=== PATIENT | male | born 1990 | race African-American/Black ===

== ENCOUNTER → 2017-04-02 20:25 | Emergency (ER) | payer OTHER ==
[~2017-04-02 20:25] MED LIST: Acetaminophen TAB* 325 MG PO ONE
[2017-04-02 21:54] LABS: Urine Bilirubin Negative (Negative); Urine Glucose Negative (Negative); Urine Nitrite Negative (Negative)
[2017-04-02 21:55] LABS: Hematocrit 44 % (42-52); Mean Corpuscular HGB Conc 34 g/dl (31-36); Mean Corpuscular Hemoglobin 30 pg (27-31); Mean Corpuscular Volume 89 fL (80-94); Mean Platelet Volume 9 um3 (7.4-10.4); Red Blood Count 4.94 10^6/ul (4.0-5.4); Red Cell Distribution Width 13 % (10.5-15); White Blood Count 6.7 10^3/ul (3.5-10.8)
[2017-04-02 21:57] LABS: Add Diff/Slide Review? Slide Review Added; Comments Flag Yes
[2017-04-02 22:10] LABS: ALT 31 U/L (7-52); AST 34 U/L (13-39); Albumin 4.8 g/dL (3.2-5.2); Alkaline Phosphatase 93 U/L (34-104); Anion Gap 8 mmol/L (2-11); BUN/Creatinine Ratio 6.9 (8-20); Blood Urea Nitrogen 9 mg/dL (6-24); CO2 Carbon Dioxide 28 mmol/L (22-32); Calcium 9.8 mg/dL (8.6-10.3); Chloride 102 mmol/L (101-111); EGFR African American 85.7 (>60); EGFR Non-African American 66.7 (>60); Globulin 3.4 g/dL (2-4); Glucose 107 mg/dL (70-100); Potassium 4.3 mmol/L (3.5-5.0); Sodium 138 mmol/L (133-145); Total Protein 8.2 g/dL (6.4-8.9)
[2017-04-02 22:15] LABS: Benzodiazepine Urine Screen None Detected (None Detect)
[2017-04-02 22:24] LABS: Acetaminophen < 15 mcg/mL; Alcohol 216 mg/dL (<10); Salicylate < 2.50 mg/dL (<30)
[2017-04-02 22:40] LABS: TSH (Thyroid Stimulating Horm) 2.16 mcIU/mL (0.34-5.60)
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
[2017-04-03 04:36] VITALS: BP 139/83
--- NOTE | 2017-04-04 02:45 | ED ---
Didier Perez Benjamin, scribed for Annette Cam MD on 04/03/17 at 0419 . Progress - Progress Note Progress Note: Signout pt from Dr. Balderrama at the end of his shift. Pt was seen for ETOH abuse. Pt pending disposition. Re-Evaluation - Re-Evaluation First Eval Re-Evaluation Time: 04:19 Change: Improved - Pt is feeling better, states that he is ready to go home. Pt is clinically sober. He has clear speech, steady gait, and no signs of alcohol withdrawal at time of discharge. Course/Dx - Course Course Of Treatment: disposition: home. condition: stable - Diagnoses Provider Diagnoses: Acute alcohol intoxication The documentation as recorded by the Didier ruiz Benjamin accurately reflects the service I personally performed and the decisions made by , Annette Cam MD.
== END | disposition home or self-care (01) ==
LOC: ED 20:25
DX: F10.129 Alcohol abuse with intoxication, unspecified (principal); Y90.7 Blood alcohol level of 200-239 mg/100 ml; F17.210 Nicotine dependence, cigarettes, uncomplicated
CPT/HCPCS: 36415; 80053; 80307; 80320; 80329; 81003; 84443; 85025; 99285; A9270-GY; G0480

== ENCOUNTER 2017-06-11 23:17 | Emergency (ER) | payer OTHER ==
[2017-06-11] MEDS: LORazepam INJ* 2 MG/ML 1 ML VIAL IV PUSH ONE ×2 (23:50→23:53)
[2017-06-12] MEDS ORDERED: Thiamine TAB* 100 MG TAB PO ONE (00:18)
[2017-06-12] MEDS ORDERED: LORazepam INJ* 2 MG/ML 1 ML VIAL ONE (00:37)
[2017-06-12] MEDS ORDERED: Haloperidol INJ IV/IM* 5 MG/ML AMP ONE (00:37)
[2017-06-12] MEDS ORDERED: diPHENhydraMINE IV* 50 MG/ML 1 ml VIAL (BENADRYL) ONE (00:37)
[2017-06-12 01:56] LABS: ABS Basophils 0 10^3/ul (0-0.2); ABS Eosinophils 0.1 10^3/ul (0-0.6); ABS Lymphocytes 1.6 10^3/ul (1.0-4.8); ABS Monocytes 0.2 10^3/ul (0-0.8); ABS Neutrophils 3.5 10^3/ul (1.5-7.7); ABS Nucleated RBC 0 10^3/ul; Eosinophil % 1.2 % (0-6); Hematocrit 35 % (42-52); Hemoglobin 12.5 g/dl (14.0-18.0); Lymphocyte % 29.1 % (25-47); Mean Corpuscular HGB Conc 35 g/dl (31-36); Mean Corpuscular Hemoglobin 30 pg (27-31); Mean Corpuscular Volume 85 fL (80-94); Mean Platelet Volume 10 um3 (7.4-10.4); Nucleated Red Blood Cells % 0; Platelet Count 194 10^3/ul (150-450); Red Blood Count 4.16 10^6/ul (4.0-5.4); Red Cell Distribution Width 13 % (10.5-15); White Blood Count 5.4 10^3/ul (3.5-10.8)
[2017-06-12 02:11] LABS: EGFR Non-African American 83.5 (>60)
[2017-06-12] MEDS ORDERED: NS 0.9% 1000 ML* 1,000 ML IV SCH (02:30)
[2017-06-12 11:35] VITALS: BP 00/0
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
== END 2017-06-12 11:34 ==
LOC: ED 23:17
DX: F10.129 Alcohol abuse with intoxication, unspecified (principal); F17.210 Nicotine dependence, cigarettes, uncomplicated
CPT/HCPCS: 36415; 80053; 80307; 80320; 83735; 84443; 85025; 96374; 99285; G0480; J1200; J1630; J2060

== ENCOUNTER 2017-06-14 | Emergency (ER) | payer OTHER ==
[2017-06-14] MEDS ORDERED: Thiamine TAB* 100 MG TAB PO ONE (06:45)
[2017-06-14] MEDS ORDERED: Acetaminophen TAB* 325 MG PO ONE (08:16)
[2017-06-14 08:33] LABS: Hematocrit 37 % (42-52); Hemoglobin 13.1 g/dl (14.0-18.0); Mean Corpuscular HGB Conc 36 g/dl (31-36); Mean Corpuscular Hemoglobin 30 pg (27-31); Mean Corpuscular Volume 85 fL (80-94); Mean Platelet Volume 10 um3 (7.4-10.4); Platelet Count 179 10^3/ul (150-450); Red Blood Count 4.31 10^6/ul (4.0-5.4); Red Cell Distribution Width 13 % (10.5-15); White Blood Count 3.9 10^3/ul (3.5-10.8)
[2017-06-14 08:46] LABS: EGFR Non-African American 87.3 (>60)
[2017-06-14 08:59] LABS: ABS Basophils 0 10^3/ul (0-0.2); ABS Eosinophils 0.1 10^3/ul (0-0.6); ABS Lymphocytes 2.2 10^3/ul (1.0-4.8); ABS Monocytes 0.3 10^3/ul (0-0.8); ABS Neutrophils 1.3 10^3/ul (1.5-7.7); ABS Nucleated RBC 0 10^3/ul; Eosinophil % 3.5 % (0-6); Lymphocyte % 56.5 % (25-47); Nucleated Red Blood Cells % 0.2
[2017-06-14 09:56] VITALS: BP 111/43
--- NOTE | 2017-06-14 23:48 | ED ---
I, Mandi Sylvester, scribed for Annette Cam MD on 06/14/17 at 0726 . Progress - Progress Note Progress Note: This pt was a sign out from Dr. Brock 0700 06/14/17 pending bloodwork. Pt presented after being found on porch steps in [place] with alcohol intoxication. Upon evaluation, the Pt feels improved but has abd pain rated as a 4 in severity. Pt is clinically sober, and states he is hungry and wants to eat and then go home. Labs have not been drawn and will be drawn now at 08:24. Re-Evaluation - Re-Evaluation First Eval Re-Evaluation Time: 09:32 Change: Improved - The pt feels better and desires to be d/c home. Complains of slight headache, and mild abd pain that feels like hunger. Course/Dx - Course Course Of Treatment: Pt had labs that were unremarkable except for AST elevated , and ETOH 171. Retentive of Rosa Jyothi and sandwich. He is clinically sober, his gait is steady and he will be discharged home via cab. Condition: stable. - Diagnoses Provider Diagnoses: Alcohol intoxication - Provider Notifications Instructed by Provider To: Other - d/c home The documentation as recorded by the julianneibHiginio beltrán Stephanie accurately reflects the service I personally performed and the decisions made by me, Annette Cam MD.
== END 2017-06-14 10:00 | disposition home or self-care (01) ==
LOC: ED
DX: F10.129 Alcohol abuse with intoxication, unspecified (principal)
CPT/HCPCS: 36415; 80053; 80307; 80320; 85025; 99282; A9270-GY; G0480

== ENCOUNTER → 2018-10-02 14:42 | Emergency (ER) | payer MEDICAID, OTHER ==
[~2018-10-02 14:42] MED LIST changes: -Acetaminophen TAB* 325 MG PO ONE; +Ondansetron ODT TAB* 4 MG SL ONE
[2018-10-02 14:47] VITALS: BP 156/55
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
== END | disposition left against medical advice (07) ==
LOC: ED 14:42
DX: R11.0 Nausea (principal); I38 Endocarditis, valve unspecified; F17.210 Nicotine dependence, cigarettes, uncomplicated; Z95.3 Presence of xenogenic heart valve
CPT/HCPCS: 99282; A9270-GY

== ENCOUNTER 2018-11-29 17:22 | Emergency (ER) | payer OTHER ==
[2018-11-29] MEDS ORDERED: KETAMINE HCL* 50 MG/ML 10 ML VIAL ONE (17:27)
[2018-11-29] MEDS ORDERED: KETAMINE HCL* 50 MG/ML 10 ML VIAL IM ONE (17:37)
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
[2018-11-29 18:02] LABS: Hematocrit 37 % (42-52); Hemoglobin 12.8 g/dL (14.0-18.0); Mean Corpuscular HGB Conc 35 g/dL (31-36); Mean Corpuscular Hemoglobin 31 pg (27-31); Mean Corpuscular Volume 90 fL (80-94); Mean Platelet Volume 8.8 fL (7.4-10.4); Platelet Count 226 10^3/uL (150-450); Red Blood Count 4.16 10^6 /uL (4.18-5.48); Red Cell Distribution Width 13 % (10-15); White Blood Count 5.2 10^3/uL (3.5-10.8)
[2018-11-29 18:18] LABS: ALT 23 U/L (7-52); AST 22 U/L (13-39); Albumin 4.4 g/dL (3.2-5.2); Albumin/Globulin Ratio 1.6 (1-3); Alkaline Phosphatase 67 U/L (34-104); Anion Gap 12 mmol/L (2-11); BUN/Creatinine Ratio 10.3 (8-20); Blood Urea Nitrogen 10 mg/dL (6-24); CO2 Carbon Dioxide 19 mmol/L (22-32); Chloride 108 mmol/L (101-111); EGFR African American 112.3 (>60); EGFR Non-African American 92.8 (>60); Globulin 2.7 g/dL (2-4); Glucose 121 mg/dL (70-100); Potassium 3.4 mmol/L (3.5-5.0); Sodium 139 mmol/L (135-145); Total Protein 7.1 g/dL (6.4-8.9)
[2018-11-29 18:29] LABS: ABS Lymphocytes 2.8 10^3/ul (1.0-4.8)
[2018-11-29 18:30] LABS: ABS Basophils 0.1 10^3/ul (0-0.2); ABS Eosinophils 0.1 10^3/ul (0-0.6); ABS Monocytes 0.3 10^3/ul (0-0.8); Eosinophil % 1.4 %; Lymphocyte % 53.7 %; Nucleated Red Blood Cells % 0.1
[2018-11-29 18:45] LABS: Acetaminophen < 15 mcg/mL; Alcohol 225 mg/dL (<10); Salicylate < 2.50 mg/dL (<30)
[2018-11-29 18:59] LABS: TSH (Thyroid Stimulating Horm) 1.24 mcIU/mL (0.34-5.60)
--- NOTE | 2018-11-29 19:11 | ED ---
Progress - Progress Note Progress Note: This patient was signed out from Dr. Harris to Dr. Cordoba upon shift change at 19 :00 11/29/18 pending sobriety and MHE. During this shift the patient was given Ativan INJ because the patient was agitated and uncooperative and Bacitracin ointment because the patient had an abrasion. The patient has been medically cleared for MHE. This patient will be signed out from Dr. Cordoba to Dr. Cam upon shift change at 07:00 11/30/18 pending MHE. Re-Evaluation - Re-Evaluation First Eval Re-Evaluation Time: 05:51 Change: Unchanged Comment: Pt medically cleared for MHE. Course/Dx - Course Course Of Treatment: This patient was signed out from Dr. Harris to Dr. Cordoba upon shift change at 19:00 11/29/18 pending sobriety and MHE. During this shift the patient was given Ativan INJ because the patient was agitated and uncooperative and Bacitracin ointment because the patient had an abrasion. The patient has been medically cleared for MHE. This patient will be signed out from Dr. Cordoba to Dr. Cam upon shift change at 07:00 11/30/18 pending MHE. - Diagnoses Provider Diagnoses: Substance abuse Discharge - Sign-Out/Discharge Documenting (check all that apply): Sign-Out Patient, Receiving Sign-Out Signing out patient TO: Annette Cam - pending MHE Receiving patient FROM: Adam Harris Patient Received Moderate/Deep Sedation with Procedure: No - Discharge Plan Condition: Stable Referrals: [facility] [[facility]] - Billing Disposition and Condition Condition: STABLE - Attestation Statements Document Initiated by Paulette: Yes Documenting Scribe: Herb Falcon Provider For Whom Paulette is Documenting (Include Credential): Veena Cordoba MD Scribe Attestation: Herb Perez scribed for Veena Cordoba MD on 11/30/18 at 0645. Scribe Documentation Reviewed: Yes Provider Attestation: The documentation as recorded by the Herb ruiz accurately reflects the service I personally performed and the decisions made by me, Veena Cordoba MD Status of Scribe Document: Viewed
[2018-11-29] MEDS ORDERED: LORazepam INJ* 2 MG/ML 1 ML VIAL ONE ×2 (20:17→20:23)
[2018-11-29] MEDS ORDERED: Haloperidol INJ IV/IM* 5 MG/ML AMP ONE (20:23)
[2018-11-29] MEDS ORDERED: diPHENhydraMINE IV* 50 MG/ML 1 ml VIAL (BENADRYL) ONE (20:23)
[2018-11-29 20:44] LABS: Urine Appearance Clear; Urine Bilirubin Negative (Negative); Urine Blood Negative (Negative); Urine Color Yellow; Urine Glucose Negative (Negative); Urine Ketones Negative (Negative); Urine Nitrite Negative (Negative); Urine Protein Negative (Negative); Urine Specific Gravity 1.011 (1.010-1.030); Urine Urobilinogen Negative (Negative)
[2018-11-29 20:52] LABS: Urine Benzodiazepine Screen None Detected (None Detect); Urine Opiates Screen Presumptive Positive (None Detect)
[2018-11-30] MEDS ORDERED: Bacitracin OINTMENT* 0.5% 0.5 oz TUBE TOPICAL ONE (05:56)
[2018-11-30] MEDS ORDERED: Bacitracin OINTMENT* 0.5% 0.5 oz TUBE ONE (05:58)
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
[2018-11-30 12:37] VITALS: BP 135/58
== END 2018-11-30 12:36 | disposition home or self-care (01) ==
LOC: ED 17:22
DX: F10.20 Alcohol dependence, uncomplicated (principal); F19.10 Other psychoactive substance abuse, uncomplicated; R46.89 Other symptoms and signs involving appearance and behavior; F17.210 Nicotine dependence, cigarettes, uncomplicated
CPT/HCPCS: 36415; 80053; 80307; 80320; 80329; 81003; 84443; 85025; 96372; 96374; 96375; 99285; A9270-GY; G0480; J1200; J1630; J2060

== ENCOUNTER 2018-12-27 20:47 | Emergency (ER) | payer OTHER ==
[2018-12-27] MEDS ORDERED: Haloperidol INJ IV/IM* 5 MG/ML AMP IM ONE (20:53)
[2018-12-27] MEDS ORDERED: Haloperidol INJ IV/IM* 5 MG/ML AMP ONE (20:54)
[2018-12-27] MEDS ORDERED: LORazepam INJ* 2 MG/ML 1 ML VIAL IV PUSH ONE ×2 (20:59→21:18)
[2018-12-27] MEDS ORDERED: Lorazepam PYXIS KEY PRN ×2 (20:59→21:18)
[2018-12-27] MEDS ORDERED: Lorazepam PYXIS KEY ONE ×2 (21:01→21:25)
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
[2018-12-27 21:40] LABS: ABS Basophils 0.1 10^3/ul (0-0.2); ABS Lymphocytes 1.4 10^3/ul (1.0-4.8); ABS Monocytes 0.5 10^3/ul (0-0.8); ABS Neutrophils 7.4 10^3/ul (1.5-7.7); ABS Nucleated RBC 0.1 10^3/ul; Eosinophil % 0.1 %; Hematocrit 44 % (42-52); Hemoglobin 15.5 g/dL (14.0-18.0); Lymphocyte % 14.5 %; Mean Corpuscular HGB Conc 35 g/dL (31-36); Mean Corpuscular Hemoglobin 31 pg (27-31); Mean Corpuscular Volume 87 fL (80-94); Mean Platelet Volume 9.3 fL (7.4-10.4); Nucleated Red Blood Cells % 0.8; Platelet Count 261 10^3/uL (150-450); Red Blood Count 5.06 10^6 /uL (4.18-5.48); Red Cell Distribution Width 13 % (10-15); White Blood Count 9.4 10^3/uL (3.5-10.8)
[2018-12-27 21:52] LABS: INR 1.08 (0.82-1.09)
[2018-12-27 22:01] LABS: Albumin 5.3 g/dL (3.2-5.2); Albumin/Globulin Ratio 1.7 (1-3); BUN/Creatinine Ratio 11.5 (8-20); Calcium 9.8 mg/dL (8.6-10.3); EGFR African American 57.2 (>60); EGFR Non-African American 47.3 (>60); Globulin 3.2 g/dL (2-4); Potassium 4.1 mmol/L (3.5-5.0); Total Bilirubin 0.6 mg/dL (0.2-1.0); Total Protein 8.5 g/dL (6.4-8.9)
--- NOTE | 2018-12-28 01:38 | ED ---
Progress - Progress Note Progress Note: This patient was signed out from Dr. Rashid to Dr. Hernandez at 22:00 12/27/18 pending brain, cervical spine, and maxillofacial CTs, along with sobriety. Brain CT impression: No acute intracranial abnormality. No interval change. ED physician has reviewed this imaging report. Cervical spine CT impression: No acute fractures of C-spine. ED physician has reviewed this imaging report. Maxillofacial CT impression: No acute facial fractures. Pending official imaging report. The patient is now sober and will be discharged home. The patient is agreeable with this plan. Re-Evaluation - Re-Evaluation First Eval Re-Evaluation Time: 21:17 Comment: Patient is agitated, yelling profanities at staff. Second Eval Comment: patients restraints removed, resting NAD. Course/Dx - Course Course Of Treatment: This patient was signed out from Dr. Rashid to Dr. Hernandez at 22:00 12/27/18 pending brain, cervical spine, and maxillofacial CTs, along with sobriety. Brain CT impression: No acute intracranial abnormality. No interval change. ED physician has reviewed this imaging report. Cervical spine CT impression: No acute fractures of C-spine. ED physician has reviewed this imaging report. Maxillofacial CT impression: No acute facial fractures. Pending official imaging report. The patient is now sober and will be discharged home. The patient is agreeable with this plan. - Diagnoses Provider Diagnoses: Alcohol intoxication Discharge - Sign-Out/Discharge Documenting (check all that apply): Patient Departure - DC, Receiving Sign-Out Receiving patient FROM: Jazmin Rashid Patient Received Moderate/Deep Sedation with Procedure: No - Discharge Plan Condition: Stable Disposition: HOME Patient Education Materials: Abuse of Alcohol (ED) Referrals: [facility] [Outside] No Primary Care Phys,NOPCP [Primary Care Provider] - - Attestation Statements Document Initiated by Scribe: Yes Documenting Scribe: Herb Falcon Provider For Whom Scribe is Documenting (Include Credential): Omid Hernandez MD Scribe Attestation: Herb Perez, scribed for Omid Hernandez MD on 12/28/18 at 0628. Status of Scribe Document: Ready
[2018-12-28 06:44] VITALS: BP 119/73
== END 2018-12-28 06:43 | disposition home or self-care (01) ==
LOC: ED 20:47
DX: F10.129 Alcohol abuse with intoxication, unspecified (principal); F19.10 Other psychoactive substance abuse, uncomplicated; S09.90XA Unspecified injury of head, initial encounter; S60.511A Abrasion of right hand, initial encounter; Y90.8 Blood alcohol level of 240 mg/100 ml or more; R04.0 Epistaxis; Y04.0XXA Assault by unarmed brawl or fight, initial encounter; Y92.9 Unspecified place or not applicable; F17.210 Nicotine dependence, cigarettes, uncomplicated; R45.1 Restlessness and agitation; Z95.4 Presence of other heart-valve replacement
CPT/HCPCS: 36415; 70450; 70486; 72125; 80053; 80320; 85025; 85610; 96374; 96375; 96376; 99285; G0480; J1630; J2060

== ENCOUNTER 2019-01-06 19:01 | Emergency (ER) | payer OTHER ==
[2019-01-06] MEDS ORDERED: LORazepam INJ* 2 MG/ML 1 ML VIAL IM ONE (19:04)
[2019-01-06] MEDS ORDERED: Haloperidol INJ IV/IM* 5 MG/ML AMP IM ONE (19:04)
[2019-01-06] MEDS ORDERED: diPHENhydraMINE IV* 50 MG/ML 1 ml VIAL (BENADRYL) IM ONE (19:04)
[2019-01-06] MEDS ORDERED: Lorazepam PYXIS KEY ONE (19:08)
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
[2019-01-06 19:42] LABS: ABS Basophils 0.1 10^3/ul (0-0.2); ABS Monocytes 0.6 10^3/ul (0-0.8); Eosinophil % 0.5 %; Hematocrit 40 % (42-52); Hemoglobin 14.8 g/dL (14.0-18.0); Lymphocyte % 35.1 %; Mean Corpuscular HGB Conc 37 g/dL (31-36); Mean Corpuscular Hemoglobin 32 pg (27-31); Mean Corpuscular Volume 86 fL (80-94); Mean Platelet Volume 8.3 fL (7.4-10.4); Nucleated Red Blood Cells % 0.1; Platelet Count 287 10^3/uL (150-450); Red Cell Distribution Width 13 % (10-15); White Blood Count 5.7 10^3/uL (3.5-10.8)
[2019-01-06 19:56] LABS: ALT 18 U/L (7-52); AST 21 U/L (13-39); Albumin 5.1 g/dL (3.2-5.2); Albumin/Globulin Ratio 1.7 (1-3); Alkaline Phosphatase 68 U/L (34-104); Anion Gap 17 mmol/L (2-11); BUN/Creatinine Ratio 12.6 (8-20); Blood Urea Nitrogen 19 mg/dL (6-24); CO2 Carbon Dioxide 17 mmol/L (22-32); Calcium 10.4 mg/dL (8.6-10.3); Chloride 103 mmol/L (101-111); EGFR African American 67.4 (>60); EGFR Non-African American 55.7 (>60); Glucose 118 mg/dL (70-100); Potassium 3.8 mmol/L (3.5-5.0); Sodium 137 mmol/L (135-145); Total Protein 8.1 g/dL (6.4-8.9)
[2019-01-06] MEDS ORDERED: Ziprasidone IM INJ* 20 MG/ML VIAL IM ONE (19:58)
[2019-01-06 20:05] LABS: Acetaminophen < 15 mcg/mL; Alcohol < 10 mg/dL (<10); Salicylate < 2.50 mg/dL (<30)
[2019-01-06] MEDS ORDERED: Sterile Water for Inj* 10 ML ONE (20:07)
[2019-01-06 20:19] LABS: TSH (Thyroid Stimulating Horm) 2.74 mcIU/mL (0.34-5.60)
[2019-01-07 05:55] VITALS: BP 137/72
== END 2019-01-07 05:55 | disposition home or self-care (01) ==
LOC: ED 19:01
DX: F19.10 Other psychoactive substance abuse, uncomplicated (principal); F17.210 Nicotine dependence, cigarettes, uncomplicated
CPT/HCPCS: 36415; 80053; 80320; 80329; 83930; 84443; 85025; 96372; 99285; G0480; J1200; J1630; J2060; J3486

== ENCOUNTER 2019-01-07 13:46 | Inpatient (IN) | payer OTHER ==
[2019-01-07 14:18] LABS: ABS Lymphocytes 1.1 10^3/ul (1.0-4.8); ABS Monocytes 0.3 10^3/ul (0-0.8); ABS Neutrophils 1.6 10^3/ul (1.5-7.7); Eosinophil % 1.6 %; Hematocrit 41 % (42-52); Hemoglobin 14.3 g/dL (14.0-18.0); Lymphocyte % 34.8 %; Mean Corpuscular HGB Conc 35 g/dL (31-36); Mean Corpuscular Hemoglobin 31 pg (27-31); Mean Corpuscular Volume 87 fL (80-94); Mean Platelet Volume 8.3 fL (7.4-10.4); Nucleated Red Blood Cells % 0.1; Platelet Count 238 10^3/uL (150-450); Red Blood Count 4.67 10^6 /uL (4.18-5.48); Red Cell Distribution Width 13 % (10-15); White Blood Count 3.1 10^3/uL (3.5-10.8)
[2019-01-07 14:37] LABS: ALT 20 U/L (7-52); AST 47 U/L (13-39); Albumin 4.6 g/dL (3.2-5.2); Albumin/Globulin Ratio 1.6 (1-3); Alkaline Phosphatase 67 U/L (34-104); Anion Gap 8 mmol/L (2-11); BUN/Creatinine Ratio 17.1 (8-20); Blood Urea Nitrogen 20 mg/dL (6-24); CO2 Carbon Dioxide 24 mmol/L (22-32); Calcium 9.5 mg/dL (8.6-10.3); Chloride 103 mmol/L (101-111); EGFR African American 90.5 (>60); EGFR Non-African American 74.8 (>60); Globulin 2.9 g/dL (2-4); Glucose 104 mg/dL (70-100); Sodium 135 mmol/L (135-145); Total Protein 7.5 g/dL (6.4-8.9)
[2019-01-07 14:38] LABS: Troponin I 0.01 ng/mL (<0.04)
[2019-01-07 14:40] LABS: Acetaminophen < 15 mcg/mL; Alcohol < 10 mg/dL (<10); Salicylate < 2.50 mg/dL (<30)
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
[2019-01-07 14:54] LABS: TSH (Thyroid Stimulating Horm) 0.61 mcIU/mL (0.34-5.60)
[2019-01-07] MEDS ORDERED: Al Hydrox/Mg Hydrox/Simet LIQ* 30 ML UDC PO ONE (15:06)
[2019-01-07] MEDS ORDERED: Lidocaine 2% VISCOUS* 15 ML UDC PO ONE (15:06)
[2019-01-07 15:29] LABS: Urine Appearance Cloudy; Urine Bilirubin Negative (Negative); Urine Blood Negative (Negative); Urine Color Yellow; Urine Glucose Negative (Negative); Urine Ketones Trace (Negative); Urine Nitrite Negative (Negative); Urine Protein Negative (Negative); Urine Specific Gravity 1.024 (1.010-1.030); Urine Urobilinogen Positive (Negative)
[2019-01-07 16:03] LABS: Urine Benzodiazepine Screen None Detected (None Detect); Urine Opiates Screen None Detected (None Detect)
[2019-01-07] MEDS ORDERED: Acetaminophen TAB* 325 MG PO PRN (18:33)
[2019-01-07] MEDS ORDERED: Al Hydrox/Mg Hydrox/Simet LIQ* 30 ML UDC PO PRN (18:33)
[2019-01-07] MEDS ORDERED: Haloperidol TAB* 5 MG PO PRN (18:33)
[2019-01-07] MEDS: diPHENhydraMINE PO* 50 MG PO PRN (21:26)
[2019-01-07] MEDS ORDERED: diPHENhydraMINE PO* 50 MG ONE (21:26)
[2019-01-07] MEDS: Nicotine Patch Removal NOTE PATCH OFF SCH (21:27)
[2019-01-08] MEDS: Nicotine PATCH 21 MG/24 HR* PATCH TRANSDERM SCH (12:26)
[2019-01-08] MEDS: Vitamin THERAPEUTIC TAB PO SCH (12:26)
[2019-01-08] MEDS: Nicotine* 2MG (FRUIT FLAVOR) GUM PO PRN ×4 (12:26→21:25)
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
[2019-01-08] MEDS: diPHENhydraMINE PO* 50 MG PO PRN (21:25)
[2019-01-08] MEDS: Nicotine Patch Removal NOTE PATCH OFF SCH (22:30)
[2019-01-09] MEDS: Nicotine PATCH 21 MG/24 HR* PATCH TRANSDERM SCH (08:17)
[2019-01-09] MEDS: Vitamin THERAPEUTIC TAB PO SCH (08:17)
[2019-01-09] MEDS: Nicotine* 2MG (FRUIT FLAVOR) GUM PO PRN ×4 (08:18→22:15)
--- NOTE | 2019-01-09 15:50 | PN ---
Subjective - Subjective Date of Service: 01/09/19 Service Type: 61586 Hosp care 25 min moderate complexity Subjective: Jourdan is still interested in going to rehab for alcohol and methamphetamine use. He describes high anxiety which borders on anger regarding his cardiac surgery when he was younger. He feels as though others don't respect that and that was the source of some of his being fired from other jobs--his irritation at the lack of respect. In addition, he is uneducated about his physical condition. Objective - General Observations Appearance: Neat, Well Groomed Appears Stated Age: Yes Stature: WNL Posture: WNL Eye Contact: Average Behavior/Activity: WNL - Interaction Observations Attitude Towards Examiner: Cooperative, Anxious, Defensive Stated Mood: Irritable, Anxious Affect: Full Speech Pattern/Tone: Clear Thought Process: Coherent Perception: WNL Thought Content: Preoccupation/Ruminations Thought Process: Lethality: Passive Wish Hallucination Type: None Delusion Type: None - Cognitive Function Orientation: A&O x 4 Level of Consciousness: Awake, Alert, Appropriate Cognition: WNL, Impaired Fund of Knowledge Estimated Intelligence: Normal Insight: Mostly Blames Others for Problems Judgment Within Normal Limits: No Ability to Make Reasonable Decisions: Moderately Impaired - Medication Compliance Cooperative with Inpatient Medication Regimen: Yes - Group Participation Participates in Group Activities: Yes Assessment - Assessment Merits Inpatient Hospitalization: For Immediate Safety Inpatient DSM-V Dx: F10.24 Clinical Impression: Jourdan is a 28-year-old black male with a history of substance use and substance induced mood disorder who comes to the hospital following contemplating suicide by jumping from a paxton. Plan - Plan Treatment Plan: Name: HAYDEE FRITZ Birthdate: 1990 [id number] Consider Vivitrol injection Pursue referral to inpatient substance use treatment Continued Medication Management: Different Medication Medications: Current Medications Acetaminophen (Tylenol Tab*) 650 mg PO Q4H PRN PRN Reason: PAIN or TEMP > 101 F Al Hydrox/Mg Hydrox/Simethicone (Maalox Plus*) 30 ml PO Q4H PRN PRN Reason: INDIGESTION Diphenhydramine HCl (Benadryl Po*) 50 mg PO Q6H PRN PRN Reason: AGITATION Last Admin: 01/08/19 21:25 Dose: 50 mg Haloperidol (Haldol Tab*) 5 mg PO Q6H PRN PRN Reason: AGITATION Multivitamins (Theragran Tab*) 1 tab PO DAILY [facility] Last Admin: 01/09/19 08:17 Dose: 1 tab Nicotine (Nicotine Patch 21 Mg/24 Hr*) 1 patch TRANSDERM DAILY [facility] Last Admin: 01/09/19 08:17 Dose: 1 patch Nicotine Polacrilex (Nicotine Gum*) 2 mg PO Q2H PRN PRN Reason: CRAVINGS Last Admin: 01/09/19 12:23 Dose: 2 mg Pharmacy Profile Note (Nicotine Patch Removal Note*) 1 note PATCH OFF [address]99 [facility] Last Admin: 01/08/19 22:30 Dose: 1 note - Discharge Plan Discharge Plan: Drug/Alcohol Rehab
[2019-01-09] MEDS: diPHENhydraMINE PO* 50 MG PO PRN (22:15)
[2019-01-09] MEDS: Nicotine Patch Removal NOTE PATCH OFF SCH (22:16)
[2019-01-10] MEDS: Nicotine* 2MG (FRUIT FLAVOR) GUM PO PRN ×5 (08:30→23:08)
[2019-01-10] MEDS: Vitamin THERAPEUTIC TAB PO SCH (08:30)
[2019-01-10] MEDS: Nicotine PATCH 21 MG/24 HR* PATCH TRANSDERM SCH (08:31)
--- NOTE | 2019-01-10 15:56 | PN ---
Subjective - Subjective Date of Service: 01/10/19 Service Type: [id number] Hosp care 15 min low complexity Subjective: Db is seen in weekend coverage for NPP, Meera Arciniega. The patient is in good spirits and says that he is still willing to go to inpatient rehab, however, he is attempting to bargain so that he can return home first. 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 He denies SI. Objective - General Observations Appearance: Neat, Well Groomed Appears Stated Age: Yes Stature: Short Posture: WNL Eye Contact: Average Behavior/Activity: WNL - Interaction Observations Attitude Towards Examiner: Cooperative Stated Mood: Euthymic Affect: Full Speech Pattern/Tone: Clear, Appropriate, Normal Volume Thought Process: Coherent Perception: WNL Thought Content: WNL Hallucination Type: None Delusion Type: None - Cognitive Function Orientation: A&O x 4 Level of Consciousness: Awake, Alert, Appropriate Cognition: WNL Estimated Intelligence: Normal Insight: WNL Judgment Within Normal Limits: Yes - Medication Compliance Cooperative with Inpatient Medication Regimen: Yes - Group Participation Participates in Group Activities: Yes Assessment - Assessment Merits Inpatient Hospitalization: Consolidate Improvements, Pending Safe DC Plan Inpatient DSM-V Dx: F10.24 Clinical Impression: Jourdan is a 28-year-old black male with a history of substance use and substance induced mood disorder who comes to the hospital following contemplating suicide by jumping from a paxton. Plan - Plan Treatment Plan: Name: DB FRITZ Birthdate: 1990 [id number] Consider Vivitrol injection Pursue referral to inpatient substance use treatment Continued Medication Management: Consider Medication Medications: Current Medications Acetaminophen (Tylenol Tab*) 650 mg PO Q4H PRN PRN Reason: PAIN or TEMP > 101 F Al Hydrox/Mg Hydrox/Simethicone (Maalox Plus*) 30 ml PO Q4H PRN PRN Reason: INDIGESTION Diphenhydramine HCl (Benadryl Po*) 50 mg PO Q6H PRN PRN Reason: AGITATION Last Admin: 01/09/19 22:15 Dose: 50 mg Haloperidol (Haldol Tab*) 5 mg PO Q6H PRN PRN Reason: AGITATION Multivitamins (Theragran Tab*) 1 tab PO DAILY [facility] Last Admin: 01/10/19 08:30 Dose: 1 tab Nicotine (Nicotine Patch 21 Mg/24 Hr*) 1 patch TRANSDERM DAILY [facility] Last Admin: 01/10/19 08:31 Dose: Not Given Nicotine Polacrilex (Nicotine Gum*) 2 mg PO Q2H PRN PRN Reason: CRAVINGS Last Admin: 01/10/19 15:12 Dose: 2 mg Pharmacy Profile Note (Nicotine Patch Removal Note*) 1 note PATCH OFF 2099 [facility] Last Admin: 01/09/19 22:16 Dose: 1 note - Discharge Plan Discharge Plan: Drug/Alcohol Rehab
[2019-01-10] MEDS: Nicotine Patch Removal NOTE PATCH OFF SCH (20:35)
[2019-01-10] MEDS: diPHENhydraMINE PO* 50 MG PO PRN (23:08)
[2019-01-11] MEDS: Nicotine* 2MG (FRUIT FLAVOR) GUM PO PRN ×3 (08:24→21:59)
[2019-01-11] MEDS: Vitamin THERAPEUTIC TAB PO SCH (08:24)
[2019-01-11] MEDS: Nicotine PATCH 21 MG/24 HR* PATCH TRANSDERM SCH (10:47)
[2019-01-11] MEDS: Nicotine Patch Removal NOTE PATCH OFF SCH (21:58)
[2019-01-11] MEDS: diPHENhydraMINE PO* 50 MG PO PRN (22:00)
[2019-01-12] MEDS: Vitamin THERAPEUTIC TAB PO SCH (09:36)
[2019-01-12] MEDS: Nicotine* 2MG (FRUIT FLAVOR) GUM PO PRN ×4 (09:36→20:56)
[2019-01-12] MEDS: Nicotine PATCH 21 MG/24 HR* PATCH TRANSDERM SCH (09:37)
[2019-01-12] MEDS ORDERED: LORazepam TAB(*) 1 MG ONE (12:02)
[2019-01-12] MEDS ORDERED: LORazepam TAB(*) 1 MG PO ONE (13:00)
--- NOTE | 2019-01-12 15:58 | PN ---
Subjective - Subjective Date of Service: 01/12/19 Service Type: [id number] Hosp care 35 min high complexity Subjective: Db displays significant anxiety today. He reports chest pain that is pinching at the center of his chest. An EKG is performed and it is abnormal. I spoke with Dr. Nivia Laura who viewed an old EKG from 7 years ago which showed similar pattern. Dr. Laura suggested an anxiolytic (1 mg of Ativan had already been administered) and education was provided to Jourdan regarding his condition and further education will be pursued for him. Objective - General Observations Appearance: Neat Stature: Short Posture: WNL Eye Contact: Average Behavior/Activity: Agitated - Interaction Observations Attitude Towards Examiner: Cooperative, Anxious Stated Mood: Anxious Affect: Labile Speech Pattern/Tone: Clear Thought Process: Coherent, Goal Directed Perception: WNL Thought Content: Preoccupation/Ruminations Hallucination Type: None Delusion Type: None - Cognitive Function Orientation: A&O x 4 Level of Consciousness: Awake, Alert, Appropriate Cognition: WNL Estimated Intelligence: Normal Insight: WNL Judgment Within Normal Limits: Yes - Medication Compliance Cooperative with Inpatient Medication Regimen: Yes - Group Participation Participates in Group Activities: Yes Assessment - Assessment Merits Inpatient Hospitalization: For Immediate Safety Inpatient DSM-V Dx: F10.24 Clinical Impression: Jourdan is a 28-year-old black male with a history of substance use and substance induced mood disorder who comes to the hospital following contemplating suicide by jumping from a paxton. He is currently not suicidal but is experiencing high anxiety which he would have medicated with nicotine or perhaps alcohol in the outpatient setting. He is preparing to go to rehab. Plan - Plan Treatment Plan: Name: DB FRITZ Birthdate: 1990 [id number] Consider Vivitrol injection Pursue referral to inpatient substance use treatment 01/12/19 Preparing to go to rehab Starting hydroxyzine HCL 50 mg for anxiety and related chest pain. Continued Medication Management: Different Medication Medications: Current Medications Acetaminophen (Tylenol Tab*) 650 mg PO Q4H PRN PRN Reason: PAIN or TEMP > 101 F Al Hydrox/Mg Hydrox/Simethicone (Maalox Plus*) 30 ml PO Q4H PRN PRN Reason: INDIGESTION Diphenhydramine HCl (Benadryl Po*) 50 mg PO Q6H PRN PRN Reason: AGITATION Last Admin: 01/11/19 22:00 Dose: 50 mg Haloperidol (Haldol Tab*) 5 mg PO Q6H PRN PRN Reason: AGITATION Multivitamins (Theragran Tab*) 1 tab PO DAILY [facility] Last Admin: 01/12/19 09:36 Dose: 1 tab Nicotine (Nicotine Patch 21 Mg/24 Hr*) 1 patch TRANSDERM DAILY [facility] Last Admin: 01/12/19 09:37 Dose: Not Given Nicotine Polacrilex (Nicotine Gum*) 2 mg PO Q2H PRN PRN Reason: CRAVINGS Last Admin: 01/12/19 14:19 Dose: 2 mg Pharmacy Profile Note (Nicotine Patch Removal Note*) 1 note PATCH OFF 2100 [facility] Last Admin: 01/11/19 21:58 Dose: Not Given - Discharge Plan Discharge Plan: Drug/Alcohol Rehab
[2019-01-12] MEDS: Nicotine Patch Removal NOTE PATCH OFF SCH (19:32)
[2019-01-12] MEDS ORDERED: hydrOXYzine HCL TAB* 50 MG PO PRN (20:47)
[2019-01-12] MEDS: diPHENhydraMINE PO* 50 MG PO PRN (21:42)
[2019-01-13] MEDS: Nicotine* 2MG (FRUIT FLAVOR) GUM PO PRN ×2 (08:36→11:46)
[2019-01-13] MEDS: Vitamin THERAPEUTIC TAB PO SCH (08:36)
[2019-01-13] MEDS: Nicotine PATCH 21 MG/24 HR* PATCH TRANSDERM SCH (08:38)
[2019-01-13 09:36] VITALS: BP 109/62
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
== END 2019-01-13 15:09 | disposition home or self-care (01) | DRG 775 ==
LOC: ED 13:46 → BSU 18:37
PROVIDERS: ADMIT Psychiatry & Neurology Psychiatry; ATTEND Psychiatry & Neurology Psychiatry
DX: F10.24 Alcohol dependence with alcohol-induced mood disorder (principal); R45.851 Suicidal ideations; R07.9 Chest pain, unspecified; F15.14 Other stimulant abuse with stimulant-induced mood disorder; Z95.3 Presence of xenogenic heart valve; Z81.1 Family history of alcohol abuse and dependence; Z81.8 Family history of other mental and behavioral disorders; Z81.3 Family history of other psychoactive substance abuse and dependence
CPT/HCPCS: 36415; 71045; 80053; 80307; 80320; 80329; 81003; 84443; 84484; 85025; 93005; 99222; 99231; 99232; 99233; 99238; 99285; A9270-GY; G0480

== ENCOUNTER 2019-01-15 00:10 | Emergency (ER) | payer OTHER ==
[2019-01-15] MEDS ORDERED: Al Hydrox/Mg Hydrox/Simet LIQ* 30 ML UDC PO ONE (00:23)
[2019-01-15] MEDS ORDERED: Lidocaine 2% VISCOUS* 15 ML UDC PO ONE (00:23)
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
[2019-01-15 00:47] LABS: ABS Eosinophils 0.1 10^3/ul (0-0.6); ABS Lymphocytes 2.1 10^3/ul (1.0-4.8); ABS Monocytes 0.3 10^3/ul (0-0.8); ABS Neutrophils 1.7 10^3/ul (1.5-7.7); Eosinophil % 1.8 %; Hematocrit 35 % (42-52); Hemoglobin 12.5 g/dL (14.0-18.0); Lymphocyte % 49.5 %; Mean Corpuscular HGB Conc 36 g/dL (31-36); Mean Corpuscular Hemoglobin 31 pg (27-31); Mean Corpuscular Volume 87 fL (80-94); Mean Platelet Volume 9.1 fL (7.4-10.4); Nucleated Red Blood Cells % 0.2; Platelet Count 230 10^3/uL (150-450); Red Cell Distribution Width 13 % (10-15); White Blood Count 4.2 10^3/uL (3.5-10.8)
[2019-01-15 00:56] LABS: Albumin 4.4 g/dL (3.2-5.2); Albumin/Globulin Ratio 1.9 (1-3); BUN/Creatinine Ratio 13.1 (8-20); Calcium 9.7 mg/dL (8.6-10.3); EGFR African American 80.1 (>60); EGFR Non-African American 66.2 (>60); Globulin 2.3 g/dL (2-4); Potassium 4.1 mmol/L (3.5-5.0); Total Bilirubin 0.6 mg/dL (0.2-1.0); Total Protein 6.7 g/dL (6.4-8.9)
[2019-01-15 00:57] LABS: Troponin I 0.01 ng/mL (<0.04)
[2019-01-15 04:43] VITALS: BP 132/56
== END 2019-01-15 05:13 | disposition home or self-care (01) ==
LOC: ED 00:10
DX: R07.9 Chest pain, unspecified (principal); K21.9 Gastro-esophageal reflux disease without esophagitis; F17.210 Nicotine dependence, cigarettes, uncomplicated; I38 Endocarditis, valve unspecified
CPT/HCPCS: 36415; 80053; 84484; 85025; 93005; 99283; A9270-GY

== ENCOUNTER 2019-04-24 23:33 | Emergency (ER) | payer OTHER ==
[2019-04-24 23:36] VITALS: BP 136/70
== END 2019-04-25 01:18 | disposition left against medical advice (07) ==
LOC: ED 23:33
DX: Z53.21 Procedure and treatment not carried out due to patient leaving prior to being seen by health care provider (principal); R10.9 Unspecified abdominal pain
CPT/HCPCS: 99281

== ENCOUNTER 2019-06-14 04:02 | Emergency (ER) | payer OTHER ==
[2019-06-14] MEDS ORDERED: Ibuprofen TAB* 600 MG PO ONE (04:15)
[2019-06-14] MEDS ORDERED: Acetaminophen TAB* 325 MG PO ONE (04:15)
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
--- OUTSIDE RECORDS SUMMARY | 2019-06-14 04:35 | XMS REPORT ---
:1990 Author Organization [facility] Care Team Providers Name Role Phone Elaine Sen Primary Care Physician Unavailable Allergies, Adverse Reactions, Alerts Allergy Code CodeSystem Reaction Severity Criticality Status Start Substance Date Moderate Medications Medication Medication Medication Start Stop Route Dose Status Fill Code CodeSystem Date Date Instructions RxNorm Problems Problem Name Code CodeSystem Alternate Alternate Start End Status Narrative Code CodeSystem Date Date Conduct 90220282 SNOMED-CT Active disorder, 08-22 unspecified Conduct [id number] SNOMED-CT Active disorder, 08-22 unspecified Relevant diagnostic tests/laboratory data Narrative No Information Procedures Procedure Code CodeSystem Target Date of Status Service Device Device Device Name Site Procedure Delivery Code Name UID Location SNOMED-CT () 2019-04-[address], [id number] SNOMED-CT () 2019-04-[address], [id number] Encounters/Encounter Diagnoses Encounter Name Encounter Diagnosis Diagnosis Diagnosis Date of Service Code Code Name CodeSystem Diagnosis Delivery Location [facility] [id number] Conduct SNOMED-CT 2019-04-20 Behavioral Individual 30 disorder, Health min unspecified Clinic , , , Vital Signs No Information Social History Element Description Description Start End Code CodeSystem AdditionalInfo Date Date SexAssignedAtBirth Male 1989-1 M AdministrativeGender 06-25 Hospital Discharge Instructions Reason For Referral Medical Equipment FDA Assessments
--- OUTSIDE RECORDS SUMMARY | 2019-06-14 04:35 | XMS REPORT ---
:1990 Author Organization [facility] Care Team Providers Name Role Phone Elaine Sen Primary Care Physician Unavailable Allergies, Adverse Reactions, Alerts Allergy Code CodeSystem Reaction Severity Criticality Status Start Substance Date Moderate Medications Medication Medication Medication Start Stop Route Dose Status Fill Code CodeSystem Date Date Instructions RxNorm Problems Problem Name Code CodeSystem Alternate Alternate Start End Status Narrative Code CodeSystem Date Date Conduct [id number] SNOMED-CT Active disorder, 08-22 unspecified Conduct [id number] SNOMED-CT Active disorder, 08-22 unspecified Relevant diagnostic tests/laboratory data Narrative No Information Procedures Procedure Code CodeSystem Target Date of Status Service Device Device Device Name Site Procedure Delivery Code Name UID Location Psychother [id number] SNOMED-CT () 2019-04-20 completed Mental apy, 45 4 Health- minutes [facility] with [facility] patient [address], [place], [id number] SNOMED-CT () 2019-04-08 [facility] [address], [place], [id number] SNOMED-CT () 2019-04-[address], [id number] Encounters/Encounter Diagnoses Encounter Name Encounter Diagnosis Diagnosis Diagnosis Date of Service Code Code Name CodeSystem Diagnosis Delivery Location Psychotherapy - [address]336 [id number] Conduct SNOMED-CT 2019-04-20 Behavioral Individual 30 disorder, Health min unspecified Clinic [address], [place], [id number] Vital Signs No Information Social History Element Description Description Start End Code CodeSystem AdditionalInfo Date Date SexAssignedAtBirth Male 1989-1 M AdministrativeGender 06-25 Hospital Discharge Instructions Reason For Referral Medical Equipment FDA Assessments
[2019-06-14 05:30] VITALS: BP 140/69
== END 2019-06-14 05:27 | disposition home or self-care (01) ==
LOC: ED 04:02
DX: M54.9 Dorsalgia, unspecified (principal); G89.29 Other chronic pain; F17.210 Nicotine dependence, cigarettes, uncomplicated; Z95.4 Presence of other heart-valve replacement
CPT/HCPCS: 99282; A9270-GY

== ENCOUNTER 2020-11-17 12:36 | Inpatient (IN) ==
[2020-11-17] MEDS ORDERED: Haloperidol 5 mg/ml SDV IV/IM 5 MG/ML AMP IM ONE (12:55)
[2020-11-17] MEDS ORDERED: diPHENhydraMINE IV 50 MG/ML 1 ml VIAL (BENADRYL) IM ONE (12:55)
[2020-11-17 20:31] LABS: ABS Eosinophils 0.1 10^3/ul (0-0.6); ABS Lymphocytes 1.9 10^3/ul (1.0-4.8); ABS Monocytes 0.2 10^3/ul (0-0.8); ABS Neutrophils 1.8 10^3/ul (1.5-7.7); Eosinophil % 3.1 %; Hematocrit 35 % (42-52); Hemoglobin 12.3 g/dL (14.0-18.0); Lymphocyte % 45.7 %; Mean Corpuscular HGB Conc 35 g/dL (31-36); Mean Corpuscular Hemoglobin 31 pg (27-31); Mean Corpuscular Volume 87 fL (80-94); Mean Platelet Volume 8.4 fL (7.4-10.4); Nucleated Red Blood Cells % 0.1; Platelet Count 265 10^3/uL (150-450); Red Blood Count 4.03 10^6 /uL (4.18-5.48); Red Cell Distribution Width 13 % (10-15); White Blood Count 4.1 10^3/uL (3.5-10.8)
[2020-11-17 20:49] LABS: ALT 29 U/L (7-52); AST 46 U/L (13-39); Albumin 3.7 g/dL (3.2-5.2); Albumin/Globulin Ratio 1.6 (1-3); Alkaline Phosphatase 65 U/L (35-149); Anion Gap 4 mmol/L (2-11); Blood Urea Nitrogen 14 mg/dL (6-24); CO2 Carbon Dioxide 25 mmol/L (22-32); Calcium 8.7 mg/dL (8.6-10.3); Chloride 110 mmol/L (101-111); EGFR African American 108.1 (>60); EGFR Non-African American 89.4 (>60); Globulin 2.3 g/dL (2-4); Glucose 89 mg/dL (70-100); Potassium 3.8 mmol/L (3.5-5.0); Sodium 139 mmol/L (135-145)
[2020-11-17 21:47] LABS: Acetaminophen < 15 mcg/mL; Alcohol, S < 10 mg/dL (<10); Salicylate < 2.50 mg/dL (<30)
[2020-11-17 22:03] LABS: TSH Ultra Thyroid Stim Horm 0.45 mcIU/mL (0.34-5.60)
[2020-11-18] MEDS ORDERED: Al Hydrox/Mg Hydrox/Simet LIQ 30 ML UDC PO PRN (01:04)
[2020-11-18] MEDS: Nicotine PATCH 21 MG/24 HR PATCH TRANSDERM SCH (10:32)
[2020-11-18] MEDS: Vitamin THERAPEUTIC TAB PO SCH (10:32)
[2020-11-18 11:04] LABS: % Iron Saturation 20 % (15-55); Iron 61 ug/dL (50-212); Total Iron Binding Capacity 307 mcg/dL (250-450); Transferrin 219 mg/dL (203-362); Unsaturated Iron Binding < 292 ug/dL
[2020-11-19] MEDS: Nicotine PATCH 21 MG/24 HR PATCH TRANSDERM SCH (09:23)
[2020-11-19] MEDS: Vitamin THERAPEUTIC TAB PO SCH (09:30)
[2020-11-19] MEDS: Nicotine GUM 2MG FRUIT FLAVOR PO PRN (22:32)
[2020-11-20] MEDS: Vitamin THERAPEUTIC TAB PO SCH (09:02)
[2020-11-20] MEDS: Nicotine PATCH 21 MG/24 HR PATCH TRANSDERM SCH (09:03)
[2020-11-20] MEDS: Nicotine GUM 2MG FRUIT FLAVOR PO PRN ×2 (15:11→17:27)
[2020-11-21] MEDS: Vitamin THERAPEUTIC TAB PO SCH (09:06)
[2020-11-21] MEDS: Nicotine PATCH 21 MG/24 HR PATCH TRANSDERM SCH (09:06)
[2020-11-21] MEDS: Nicotine GUM 2MG FRUIT FLAVOR PO PRN (09:07)
[2020-11-21] MEDS ORDERED: COVID-19 VACCINE, AD26(JANSSEN)/PF 0.5 ML IM ONE (14:30)
[2020-11-21] MEDS ORDERED: Pentoxifylline CR 400 mg TAB 400 MG PO ONE (18:00)
[2020-11-22] MEDS: Nicotine PATCH 21 MG/24 HR PATCH TRANSDERM SCH (08:26)
[2020-11-22] MEDS: Vitamin THERAPEUTIC TAB PO SCH (08:26)
[2020-11-22] MEDS: Nicotine GUM 2MG FRUIT FLAVOR PO PRN ×3 (08:27→21:36)
[2020-11-22] MEDS ORDERED: Pentoxifylline CR 400 mg TAB 400 MG PO SCH (18:00)
[2020-11-23] MEDS: Nicotine PATCH 21 MG/24 HR PATCH TRANSDERM SCH (08:23)
[2020-11-23] MEDS: Vitamin THERAPEUTIC TAB PO SCH (08:23)
[2020-11-23] MEDS: Nicotine GUM 2MG FRUIT FLAVOR PO PRN ×2 (08:25→15:35)
[2020-11-23] MEDS: Pentoxifylline CR 400 mg TAB 400 MG PO SCH (18:08)
[2020-11-24] MEDS: Vitamin THERAPEUTIC TAB PO SCH (08:09)
[2020-11-24] MEDS: Nicotine PATCH 21 MG/24 HR PATCH TRANSDERM SCH (08:10)
[2020-11-24 08:14] LABS: HDL Cholesterol 59.3 mg/dL
[2020-11-24] MEDS: Nicotine GUM 2MG FRUIT FLAVOR PO PRN ×3 (08:48→20:05)
[2020-11-24 17:22] VITALS: BP 117/90
[2020-11-24] MEDS: Pentoxifylline CR 400 mg TAB 400 MG PO SCH (17:51)
[2020-11-25] MEDS: Vitamin THERAPEUTIC TAB PO SCH (08:45)
[2020-11-25] MEDS: Nicotine PATCH 21 MG/24 HR PATCH TRANSDERM SCH (08:45)
[2020-11-25] MEDS: Nicotine GUM 2MG FRUIT FLAVOR PO PRN (08:46)
== END 2020-11-25 09:25 | disposition home or self-care (01) ==
LOC: ED 12:36 → BSU 11-18 00:06
PROVIDERS: ADMIT Psychiatry & Neurology Psychiatry; ATTEND Psychiatry & Neurology Psychiatry